=== PATIENT | male | born 1965 | race Two or more races ===

== ENCOUNTER 2024-09-28 11:38 | Inpatient (IN) | payer OTHER ==
[~2024-09-28] VITALS: Ht 167.6 cm; Wt 77.0 kg
--- NOTE | 2024-09-28 12:06 | ED.PDOC ---
GI ASSESSMENT HPI Comments 59 year old male presents to the ED with chief complaint of abdominal pain. Patient reports that he has been experiencing epigastric abdominal pain with associated nausea, vomiting, and diarrhea for the past 4 days. Patient denies any dizziness, fever, chills, melena, hematemesis, or dysuria. Chief Complaint: Abdominal Pain Time Seen by MD: 12:03 Reviewed Notes: Nurses Notes, Medications, Allergies Information Source: Patient Mode of Arrival: Ambulatory Timing: Days Duration: Since onset Prehospital treatment: None Quality: Aching Vomitus: Watery Stool: Watery Severity: Moderate Recent: None Recent Hx of: None Pain Location: Epigastric Modifying Factors: Nothing Associated sign and symptoms: Nausea, Vomiting, Diarrhea, Abdominal Pain Past Medical History PAST MEDICAL HISTORY: High Lipids, HTN Past Medical History (Other): Dewey's Esophagus Surgical History: Denies all surgeries Family History Family History: Reviewed,noncontributory to illness Social History Smoker: Non-Smoker, Quit Greater Than 1 Year Alcohol: Denies ETOH Use Drugs: Marijuana Lives In: Home Constitutional: denies: chills, diaphoresis, fatigue, fever, malaise, sweats, weakness, others EENTM: denies: blurred vision, double vision, ear bleeding, ear discharge, ear drainage, ear pain, ear ringing, eye pain, eye redness, hearing loss, mouth pain, mouth swelling, nasal discharge, nose bleeding, nose congestion, nose pain, photophobia, tearing, throat pain, throat swelling, voice changes, others Respiratory: denies: cough, hemoptysis, orthopnea, SOB at rest, shortness of breath, SOB with excertion, stridor, wheezing, others Cardiovascular: denies: chest pain, dizzy spells, diaphoresis, Dyspnea on exertion, edema, irregular heart beat, left arm pain, lightheadedness, palpitations, PND, syncope, others Gastrointestinal: reports: abdominal pain, diarrhea, nausea, vomiting; denies: abdomen distended, blood streaked bowels, constipated, dysphagia, difficulty swallowing, hematemesis, melena, poor appetite, poor fluid intake, rectal bleeding, rectal pain, others Genitourinary: denies: burning, dysuria, flank pain, frequency, hematuria, incontinence, penile discharge, penile sore, pain, testicle pain, testicle swelling, urgency, others Neurological: denies: dizziness, fainting, headache, left sided numbness, left sided weakness, numbness, paresthesia, pre-existing deficit, right sided numbness, right sided weakness, seizure, speech problems, tingling, tremors, we akness, others Musculoskeletal: denies: back pain, gout, joint pain, joint swelling, muscle pain, muscle stiffness, neck pain, others Integumetry: denies: bruises, change in color, change in hair/nails, dryness, laceration, lesions, lumps, rash, wounds, others Allergic/Immunocompromised: denies: Difficulty Healing, Frequent Infections, Hives, Itching, others Hematologic/Lymphatic: denies: anemia, blood clots, easy bleeding, easy bruising, swollen glands, others Endocrine: denies: excessive hunger, excessive sweating, excessive thirst, excessive urination, flushing, intolerance to cold, intolerance to heat, unexplained weight gain, unexplained weight loss, others Psychiatric: denies: anxiety, bipolar disorder, depression, hopeless, panic disorder, schizophrenia, sleepless, suicidal, others All Other Systems: Reviewed and Negative Physical Exam General Appearance: Moderate Distress, Normal HEENT: Normal ENT Inspection, PERRL/EOMI Neck: Full Range of Motion, Non-Tender, Normal, Normal Inspection Respiratory: Chest Non-Tender, Lungs Clear, No Accessory Muscle Use, No Respiratory Distress, Normal Breath Sounds Cardiovascular: No Edema, No JVD, No Murmur, No Gallop, Normal Peripheral Pulses, Regular Rate/Rhythm Breast Exam: Deferred Gastrointestinal: No Organomegaly, Non Tender, No Pulsatile Mass, Normal Bowel Sounds, Soft Genitalia: Deferred Pelvic: Deferred Rectal: Deferred Extremities: No calf tenderness, Normal capillary refill, Normal inspection, Normal range of motion, Non-tender, No pedal edema Musculoskeletal : Apperance: Normal Neurologic: Alert, director of accounts payable II-XII nml as Tested, No Motor Deficits, Normal Affect, Normal Mood, No Sensory Deficits Cerebellar Function: Normal Reflexes: Normal Skin: Dry, Normal Color, Warm Peripheral Pulses: 3+ Radial (R), 3+ Radial (L) Lymphatic: No Adenopathy Was a procedure done? Was a procedure done?: No GI differential Dx Differential Diagnosis: Constipation, Diverticular disease, Esophagitis, Gastritis/PUD, Gastroenteritis X-Ray, Labs, Meds, VS Vital Signs Date Time Temp Pulse Resp B/P (MAP) Pulse Ox O2 Delivery O2 Flow Rate FiO2 09/28/24 11:57 94 09/28/24 11:43 97.9 95 18 136/80 (98) 96 Lab Test 09/28/24 12:05 Range/Units White Blood Count 9.3 4.4-10.8 10^3/uL Red Blood Count 5.04 4.5-5.90 10^6/uL Hemoglobin 15.2 13.5-17.5 g/dL Hematocrit 44.7 41.0-53.0 % Mean Corpuscular Volume 88.7 80.0-100.0 fL Mean Corpuscular Hemoglobin 30.1 28.0-32.0 pg Mean Corpuscular Hemoglobin Concent 33.9 32.0-36.0 g/dL Red Cell Distribution Width 12.3 11.8-14.3 % Platelet Count 429 140-450 10^3/uL Mean Platelet Volume 7.0 6.9-10.8 fL Neutrophils (%) (Auto) 67.4 37.0-80.0 % Lymphocytes (%) (Auto) 23.0 10.0-50.0 % Monocytes (%) (Auto) 7.5 0.0-12.0 % Eosinophils (%) (Auto) 1.5 0.0-7.0 % Basophils (%) (Auto) 0.6 0.0-2.0 % Neutrophils # (Auto) 6.3 1.6-8.6 10 ^3/uL Lymphocytes # (Auto) 2.1 0.4-5.4 10 ^3/uL Monocytes # (Auto) 0.7 0-1.3 10 ^3/uL Eosinophils # (Auto) 0.1 0-0.8 10 ^3/uL Basophils # (Auto) 0.1 0-0.2 10 ^3/uL Nucleated Red Blood Cells 0.1 % Sodium Level Pending Potassium Level Pending Chloride Level Pending Carbon Dioxide Level Pending Anion Gap Pending Blood Urea Nitrogen Pending Creatinine Pending Glomerular Filtration Rate Calc Pending BUN/Creatinine Ratio Pending Serum Glucose Pending Calcium Level Pending Patient alert. Complaining of abdominal pain. Nausea vomiting diarrhea. Vitals stable. Has been having these symptoms for many days. Ambulating. Hemoglobin within normal limits. History of Dewey's esophagus. Establish intravenous access. Was given fluids. GI consultation. Was given Protonix. Reviewed his previous visit. Explained to the patient. Continue monitoring. Time of 1ST Reevaluation: 13:03 Reevaluation 1ST: Unchanged Patient Education/Counseling: Diagnosis, Treatment Family Education/Counseling: No Family Present Departure 1 Departure Time of Disposition: 12:49 Impression: Primary Impression: Gastroenteritis Additional Impression: Gastritis Qualified Codes: K29.00 - Acute gastritis without bleeding Disposition: ADMITTED INPATIENT Admit to: Med Surg Condition: Guarded Critical Care Note Critical Care Time?: No Stability Stability form required: No Heart Score Heart Score: Heart Score Response (Comments) Value History N/A 0 EKG N/A 0 Age N/A 0 Risk Factors N/A 0 Troponin N/A 0 Total 0 I personally scribed for XAVI JEORNIMO MD ([email or web address]) on 09/28/24 at 12:06. Electronically submitted by Robert Royal ([email or web address]). XAVI JERONIMO MD Sep 28, 2024 12:06
[2024-09-28 12:33] LABS: Basophils # (auto) 0.1 10 ^3/uL (0-0.2); Basophils % (auto) 0.6 % (0.0-2.0); Eosinophils # (auto) 0.1 10 ^3/uL (0-0.8); Eosinophils % (auto) 1.5 % (0.0-7.0); Hematocrit 44.7 % (41.0-53.0); Hemoglobin 15.2 g/dL (13.5-17.5); Lymphocytes # (auto) 2.1 10 ^3/uL (0.4-5.4); Mean Corpuscular Hemoglobin 30.1 pg (28.0-32.0); Mean Corpuscular Hgb Conc. 33.9 g/dL (32.0-36.0); Mean Corpuscular Volume 88.7 fL (80.0-100.0); Monocytes # (auto) 0.7 10 ^3/uL (0-1.3); Monocytes % (auto) 7.5 % (0.0-12.0); Neutrophils # (auto) 6.3 10 ^3/uL (1.6-8.6); Neutrophils % (auto) 67.4 % (37.0-80.0); Nucleated Red Blood Cells % 0.1 %; Platelet Count (auto) 429 10^3/uL (140-450); Red Blood Cells 5.04 10^6/uL (4.5-5.90); Red Cell Distribution Width 12.3 % (11.8-14.3); White Blood Cell 9.3 10^3/uL (4.4-10.8)
[2024-09-28 12:46] LABS: Chloride 106 mmol/L (98-107); Potassium 3.5 mmol/L (3.5-5.1); Sodium 142 mmol/L (136-145)
[2024-09-28 12:47] LABS: Anion Gap 9 (5-15); Carbon Dioxide 27 mmol/L (20-31)
[2024-09-28 12:48] LABS: Calcium 10.3 mg/dL (8.7-10.4)
[2024-09-28 12:52] LABS: Glucose 74 mg/dL (74-106)
[2024-09-28 12:54] LABS: BUN/Creatinine Ratio 6.3 (10.0-20.0); Blood Urea Nitrogen < 5 mg/dL (9-23)
[2024-09-28] MEDS: SODIUM CHLORIDE 0.9% 1,000 ML IV ONE (13:42)
[2024-09-28] MEDS: PANTOPRAZOLE 40 MG/10 ML VIAL INJ IV ONE (13:42)
[2024-09-28] MEDS: ONDANSETRON HCL 4 MG/2 ML VIAL IV ONE (13:42)
--- NOTE | 2024-09-28 21:19 | DVHHPRES ---
History of Present Illness Resident Creating Document: JANET GARDNER RESIDENT Reason for Visit: Abdominal pain History of Present Illness This is a 59-year-old male who presents to the ED with chief complain of abdominal pain. He has a past medical history relevant for hypertension, hyperlipidemia and Dewey's esophagus diagnosed several years ago. He denies any significant past surgical history. He states drinking alcohol and smoking tobacco around 15 years ago, used to be a heavy smoker and drinker. He occasionally smokes cannabis. Patient states that three days ago he started having epigastric abdominal pain, stabbing like, severe, constant, localized, nonradiating, mild improvement after eating. Associated with nausea and vomiting, he states his vomit appears brown, tarry like, denies any bright red blood, hematochezia or black stools. States having around 10 episodes per day. He also states having diarrhea, watery, yellowish, around five episodes per day. He also states having other associated symptoms such as dizziness, lighthe adedness, chills, fevers. He stated that he has lost around 40 lb in the last six months. Patient denies any shortness of breath, chest pain, suspicious skin rash, cough, sore throat, any frequent night sweats, fevers, chills. Last upper endoscopy was performed three years ago, last colonoscopy was performed three years ago as well, benign polyp identified. In the ED patient received IV fluids NS 1 L, Protonix 40 mg IV and Zofran 4 mg IV. CBC and BMP were unremarkable. Home medications: Enalapril, Protonix, Carafate, amitriptyline, oxycodone GI doctor is from [facility]. PCP is Dr. Joya. Cardiovascular: HTN, hyperipidemia Past Surgical History: None Smoke: Quit ALCOHOL: none (Quit) Lives: with Family Review of Systems Constitutional: Yes: Fever, Chills; No: Sweats, Weakness, Malaise, Other Eyes: No: Pain, Vision change, Conjunctivae inflammation, Eyelid inflammation, Other, Redness ENT: No: Ear pain, Ear discharge, Nose pain, Nose discharge, Nose congestion, Mouth pain, Mouth swelling, Throat pain, Throat swelling, Other Respiratory: No: Cough, Dry, Shortness of breath, SOB with excertion, Wheezing, Hemoptysis, Pleuritic Pain, Sputum, Wheezing, Other Cardiovascular: No: Chest Pain, Palpitations, Orthopnea, Paroxysmal Noc. Dyspnea, Edema, Lt Headedness, Other Gastrointestinal: Nausea, Vomiting, Abdominal Pain, Diarrhea; No: Constipation, Melena, Hematochezia, Other Genitourinary: No Dysuria, No Frequency, No Incontinence, No Hematuria, No Retention, No Other Musculoskeletal: No: other, neck pain, shoulder pain, arm pain, back pain, hand pain, leg pain, foot pain Skin: No: Rash, Lesions, Jaundice, Bruising, Other Neurological: No: Weakness, Numbness, Incoordination, Change in speech, Confusion, Seizures, Other Allergies: Coded Allergies: NO KNOWN ALLERGIES (Unverified , 09/28/24) Exam Vital Signs Vital Signs Date Time Temp Pulse Resp B/P (MAP) Pulse Ox O2 Delivery O2 Flow Rate FiO2 09/28/24 18:44 88 12 140/78 (98) 98 09/28/24 15:38 98.4 98.4 09/28/24 13:44 Room Air* 0 21 General Appearance: Alert, Oriented X3, Cooperative, No acute distress HEENT: Atraumatic, PERRLA, EOMI Respiratory: Clear to auscultation, Normal air movement Cardiovascular: Regular rate, Normal S1, Normal S2, No murmurs Abdominal: Normal bowel sounds, Soft, No hepatospenomegaly, No masses, Other (Moderate tenderness in epigastric region, mcdaniel positive) Extremities: No clubbing, No cyanosis, No edema, Normal pulses, No tenderness/swelling Skin: No rashes, No breakdown, No significant lesion Neuro: Normal gait, Normal speech, Strength at 5/5 X4 ext, Normal tone, Sensation intact, Cranial nerves 3-12 NL Psych/Mental Status: Mental status NL, Mood NL Labs/Xrays Labs Test 09/28/24 12:05 Range/Units White Blood Count 9.3 4.4-10.8 10^3/uL Red Blood Count 5.04 4.5-5.90 10^6/uL Hemoglobin 15.2 13.5-17.5 g/dL Hematocrit 44.7 41.0-53.0 % Mean Corpuscular Volume 88.7 80.0-100.0 fL Mean Corpuscular Hemoglobin 30.1 28.0-32.0 pg Mean Corpuscular Hemoglobin Concent 33.9 32.0-36.0 g/dL Red Cell Distribution Width 12.3 11.8-14.3 % Platelet Count 429 140-450 10^3/uL Mean Platelet Volume 7.0 6.9-10.8 fL Neutrophils (%) (Auto) 67.4 37.0-80.0 % Lymphocytes (%) (Auto) 23.0 10.0-50.0 % Monocytes (%) (Auto) 7.5 0.0-12.0 % Eosinophils (%) (Auto) 1.5 0.0-7.0 % Basophils (%) (Auto) 0.6 0.0-2.0 % Neutrophils # (Auto) 6.3 1.6-8.6 10 ^3/uL Lymphocytes # (Auto) 2.1 0.4-5.4 10 ^3/uL Monocytes # (Auto) 0.7 0-1.3 10 ^3/uL Eosinophils # (Auto) 0.1 0-0.8 10 ^3/uL Basophils # (Auto) 0.1 0-0.2 10 ^3/uL Nucleated Red Blood Cells 0.1 % Sodium Level 142 136-145 mmol/L Potassium Level 3.5 3.5-5.1 mmol/L Chloride Level 106 98-107 mmol/L Carbon Dioxide Level 27 20-31 mmol/L Anion Gap 9 5-15 Blood Urea Nitrogen < 5 L 9-23 mg/dL Creatinine 0.79 0.700-1.30 mg/dL Glomerular Filtration Rate Calc 102 >90 mL/min BUN/Creatinine Ratio 6.3 L 10.0-20.0 Serum Glucose 74 74-106 mg/dL Calcium Level 10.3 8.7-10.4 mg/dL Assessment/Plan Assessment/Plan #Abdominal pain likely due to gastroenteritis, gastritis, GERD, PUD, rule out UTI, diverticulitis, cholecystitis, appendicitis, pancreatitis #Upper GI bleed #History of Dewey's esophagus Keep NPO Admit to med surge IV fluids with LR, 110 mL/hour Protonix 40 mg IV b.i.d. Zofran 4 mg IV p.r.n. Order stool occult blood, stool culture, C diff toxin, stool WBC Monitor H&H Order morning labs Ordered hepatic panel, lipase, UDS, UA Ordered CT abdomen Order chest x-ray Previous upper endoscopy and colonoscopy were performed three years ago. Ordered GI consult #History of hypertension, controlled #Hyperlipidemia Monitor Currently NPO #Ex-heavy smoker #Previous alcohol abuse Quit 15 years ago #Degenerative disc disease of lumbar spine Pain medication p.r.n. Goals of care were discussed for 30 minutes. Full code Case was discussed with Dr. Ponce. Plan discussed with: Patient My Orders Orders - JANET GARDNER RESIDENT Procedure Category Date Status Time Admit ADMIT 09/28/24 Transmitted 20:55 Notify Md Of Changes ASHLYN 09/28/24 In Process From Base 20:55 Stool Occult Blood LAB 09/28/24 Transmitted 20:58 Stool Bacterial KUMAR 09/28/24 Transmitted Culture 20:58 Stool Wbc LAB 09/28/24 Transmitted 20:58 Npo (Nothing By DIET 09/29/24 Verified Mouth) Diet Breakfast Pantoprazole PHA 09/28/24 Verified (Protonix) 22:00 Ondansetron Hcl PHA 09/28/24 Verified (Zofran) 21:00 Morphine Sulfate PHA 09/28/24 Verified Injection 21:00 Clostridium Difficile KUMAR 09/28/24 Transmitted Toxin 20:58 Urinalysis LAB 09/28/24 Verified 20:58 Drug Screen LAB 09/28/24 Verified 20:58 Hepatic Panel LAB 09/28/24 Verified 20:58 Ct Ab Pel Wo Con-No CT 09/28/24 Verified Oral Or Iv 20:58 Chest Xray 1 View XY 09/28/24 Verified 20:58 Lactated Ringers Lr PHA 09/28/24 Verified 21:00 Date of Service: Sep 29, 2024 Billing Provider: VINAY PONCE MD Common Visit Codes: [id number] INP/OBS CARE (HIGH) JANET GARDNER RESIDENT Sep 28, 2024 21:19 VINAY PONCE MD Sep 30, 2024 09:29
[2024-09-28 21:47] LABS: Albumin 5.1 g/dL (3.2-4.8); Bilirubin, Direct 0.1 mg/dL (<0.3); Bilirubin, Total 0.4 mg/dL (0.2-1.0); Total Protein 7.2 g/dL (5.7-8.2)
[2024-09-28 22:01] VITALS: BP 133/80; PULSE 80; RESP 15; TEMP 98.3; O2SAT 99
--- NOTE | 2024-09-28 22:08 | DVH ---
Exam: CT CT AB PEL WO CON-NO ORAL OR IV History: abdominal pain r/o diverticulitis, cholelithiasis Comparison Study: None Technique: Multidetector spiral CT of the abdomen was performed from lung bases to pubic symphysis. I maging was performed without IV contrast. Axial, coronal and sagittal multiplanar reformats were obta ined from the axial data set by the technologist. Radiation dose : 1. Abdomen/Pelvis: CTDIvol [CTDIvol] mGy, DLP 470.27 mGy*cm. Findings: Evaluation of solid organs is limited due to lack of intravenous contrast use. Lung Bases: No abnormality demonstrated. Liver: Liver is normal in size. No focal lesions. Gallbladder and Biliary tree: No abnormality demonstrated. Spleen: No abnormality demonstrated. Pancreas: No abnormality demonstrated. Adrenal Glands: No abnormality demonstrated. Kidneys: No abnormality demonstrated with no calculus or hydronephrosis. Bladder: Non distended. Bowel: Stomach appears grossly unremarkable. No dilated or thick walled loops of large or small bowel identified. Appendix appears unremarkable. Ascites: Absent Lymphadenopathy: No evidence of lymphadenopathy. Abdominal wall and Mesentery: Unremarkable. Vasculature: Abdominal aorta and iliac arteries demonstrate mild atherosclerotic changes but are non aneurysmal. Pelvic Organs: Unremarkable Musculoskeletal: No aggressive bony lesions. Compression fractures of the T10 and L2 vertebral bodies with mild loss of vertebral body height without retropulsion, likely not acute. Severe degenerative disc disease at L3-L4. IMPRESSION: 1. No acute abdominal or pelvic findings. Radiation optimization: All CT scans at this facility use at least one of these dose optimization [place] hniques: Automated exposure control mA and/or kV adjustment per patient size (includes targeted exams where dose is matched to clinical indication) or iterative reconstruction.
[2024-09-28] MEDS ORDERED: ALBU108A5 (22:28)
[2024-09-28] MEDS ORDERED: PANT40TA57 (22:28)
[2024-09-28] MEDS ORDERED: ATOR40TA52 (22:28)
[2024-09-28] MEDS ORDERED: ACET-6 (22:28)
[2024-09-28] MEDS ORDERED: FLUT50SP (22:28)
[2024-09-28] MEDS ORDERED: ENAL1TAB48 (22:28)
[2024-09-28] MEDS ORDERED: AMLO1TAB22 (22:28)
[2024-09-28] MEDS ORDERED: LIDO1.8P (22:28)
[2024-09-28] MEDS ORDERED: AMIT-238 (22:28)
[2024-09-28] MEDS ORDERED: SUCR1TAB (22:28)
[2024-09-28] MEDS: LACTATED RINGER'S 1,000 ML IV ONE (23:27)
[2024-09-28 23:47] VITALS: BP 132/85; PULSE 77; RESP 18; TEMP 98.1; O2SAT 99
[2024-09-28] MEDS: PANTOPRAZOLE 40 MG/10 ML VIAL INJ IV SCH (23:55)
[2024-09-28] MEDS: MORPHINE SULFATE INJ 2 MG/ml SYRG IV PRN (23:57)
[2024-09-29] MEDS: LACTATED RINGER'S 1,000 ML IV ONE (00:55)
[2024-09-29 01:16] LABS: Urine Bacteria None Seen /hpf (None Seen)
[2024-09-29 01:31] LABS: Urine Blood Negative /uL (Negative); Urine Clarity Clear (Clear); Urine Color Yellow (Yellow); Urine Protein, UAD 1+ (Negative); Urine Specific Gravity 1.024 (1.001-1.035); Urine Squamous Epithelial Cell FEW /hpf (<5); Urine Urobilinogen 3 mg/dL (Negative); Urine WBC < 1 /HPF (0-3); Urine pH 8.5 (5.0-9.0)
[2024-09-29 01:42] LABS: Opiate Scree,Urine Neg (NEGATIVE)
[2024-09-29 01:46] LABS: Amphetamine Screen, Urine Neg (NEGATIVE); Barbiturate Scree,Urine Neg (NEGATIVE); Benzodiazephine Screen, Urine Neg (NEGATIVE); Cannabinoid Screen, Urine Pos (NEGATIVE); Cocaine Screen, Urine Neg (NEGATIVE); Phencyclidine Screen, Urine Neg (NEGATIVE)
[2024-09-29 02:11] LABS: COVID19 ANTIGEN SOFIA FIA NEGATIVE (NEGATIVE)
[2024-09-29 05:00] VITALS: BP 146/88; PULSE 92; RESP 21; TEMP 97.9; O2SAT 98
--- NOTE | 2024-09-29 06:36 | DVH ---
EXAM: XR Chest, 1 View CLINICAL INDICATION: chest pain TECHNIQUE: Frontal view of the chest. COMPARISON: None FINDINGS: LUNGS AND PLEURAL SPACES: Pulmonary venous congestion. No consolidation. No pneumothorax. HEART: Unremarkable. No cardiomegaly. MEDIASTINUM: Unremarkable. Normal mediastinal contour. BONES/JOINTS: Unremarkable. No acute fracture. OTHER FINDINGS: . . IMPRESSION: Pulmonary venous congestion.
[2024-09-29] MEDS: ONDANSETRON HCL 4 MG/2 ML VIAL IV PRN (06:46)
[2024-09-29 07:13] LABS: Basophils # (auto) 0 10 ^3/uL (0-0.2); Basophils % (auto) 0.4 % (0.0-2.0); Eosinophils # (auto) 0.3 10 ^3/uL (0-0.8); Eosinophils % (auto) 3.7 % (0.0-7.0); Hematocrit 39.3 % (41.0-53.0); Hemoglobin 13.7 g/dL (13.5-17.5); Lymphocytes % (auto) 25.1 % (10.0-50.0); Mean Corpuscular Hemoglobin 30.9 pg (28.0-32.0); Mean Corpuscular Hgb Conc. 34.8 g/dL (32.0-36.0); Mean Corpuscular Volume 88.7 fL (80.0-100.0); Monocytes # (auto) 0.5 10 ^3/uL (0-1.3); Monocytes % (auto) 6.3 % (0.0-12.0); Neutrophils # (auto) 5.2 10 ^3/uL (1.6-8.6); Neutrophils % (auto) 64.5 % (37.0-80.0); Nucleated Red Blood Cells % 0.1 %; Platelet Count (auto) 322 10^3/uL (140-450); Red Blood Cells 4.43 10^6/uL (4.5-5.90); Red Cell Distribution Width 12.4 % (11.8-14.3); White Blood Cell 8.1 10^3/uL (4.4-10.8)
[2024-09-29 07:21] LABS: Partial Thromboplastin Time 24.8 SEC (24.5-34.5); Prothrombin Time 10.6 sec (9.3-11.8)
[2024-09-29 07:30] LABS: Anion Gap 8 (5-15); Carbon Dioxide 27 mmol/L (20-31); Potassium 3.8 mmol/L (3.5-5.1); Sodium 142 mmol/L (136-145)
[2024-09-29 07:32] LABS: Calcium 9.4 mg/dL (8.7-10.4)
[2024-09-29 07:36] LABS: BUN/Creatinine Ratio 5.7 (10.0-20.0); Glucose 96 mg/dL (74-106)
[2024-09-29 07:41] LABS: Blood Urea Nitrogen 5 mg/dL (9-23)
[2024-09-29 07:42] LABS: Chloride 107 mmol/L (98-107)
[2024-09-29 08:00] VITALS: RESP 18
[2024-09-29] MEDS ORDERED: IOHEXOL 300 MG/ML 100ML BOTTLE IJ ONE (08:23)
[2024-09-29 09:00] VITALS: BP 133/83; PULSE 77; RESP 17; TEMP 98.1; O2SAT 97
--- NOTE | 2024-09-29 09:00 | DVH ---
CT CT AB PEL WITH IV CON ONLY INDICATION: r/o pancreatic mass, gastric mass EXAM DATE: 09/29/2024 08:21 AM COMPARISON: None RADIATION DOSE: CTDIvol: 10.71 mGy, DLP: 582.89 mGy*cm PROCEDURE: Helical CT images were obtained of the abdomen and pelvis with IV contrast Sagittal and c oronal reconstructions are provided. ORAL CONTRAST: None. ADDITIONAL IMAGES / REFORMATS: None All CT scans at this medical facility are performed using dose modulation techniques as appropriate t o a performed exam including the following: Automated exposure control was utilized; adjustment of th e MA and/or KV according to patient size; and use of iterative reconstruction technique. FINDINGS: LUNG BASE: Normal. LIVER: Normal. GALLBLADDER AND BILIARY TREE: No calcified gallstones. Normal caliber wall. No intra- or extrahepatic biliary ductal dilation. PANCREAS: Normal. SPLEEN: Normal. BOWEL: Normal. ADRENALS: Normal. KIDNEYS AND URETER: Normal. BLADDER: Normal. REPRODUCTIVE ORGANS: Normal. LYMPH NODES:No lymphadenopathy. PERITONEUM: No ascites or free air. No other fluid collection. VESSELS: Scattered atherosclerotic calcifications are noted. RETROPERITONEUM: Normal. ABDOMINAL WALL: Normal. BONES: Scattered osseous degenerative changes are noted. IMPRESSION: No acute intraabdominal abnormality. No abdominal masses are seen.
[2024-09-29] MEDS: MORPHINE SULFATE INJ 2 MG/ml SYRG IV ONE (10:00)
--- NOTE | 2024-09-29 10:36 | DVHCONRES ---
Date Seen: Sep 29, 2024 Resident Creating Document: EARLENE RIDDLE RESIDENT History of Present Illness Patient states that three days ago he started having epigastric abdominal pain, stabbing like, severe, constant, localized, nonradiating, mild improvement after eating. Associated with nausea and vomiting, he states his vomit appears brown, tarry like, denies any bright red blood, hematochezia or black stools. States having around 10 episodes per day. He also states having diarrhea, watery, yellowish, around five episodes per day. He also states having other associated symptoms such as dizziness, lightheadedness, chills, fevers. He stated that he has lost around 40 lb in the last six months. Patient denies any shortness of breath, chest pain, suspicious skin rash, cough, sore throat, any frequent night sweats, fevers, chills. Last upper endoscopy was performed three years ago, last colonoscopy was performed three years ago as well, benign polyp identified. In the ED patient received IV fluids NS 1 L, Protonix 40 mg IV and Zofran 4 mg IV. CBC and BMP were unremarkable. Patient seen and examined at the bedside. Reports epigastric pain, history of Dewey's esophagus. EGD scheduled for tomorrow NPO midnight. Home medications: Enalapril, Protonix, Carafate, amitriptyline, oxycodone GI doctor is from [facility]. PCP is Dr. Joya. Cardiovascular: HTN, hyperipidemia Past Surgical History: None Smoke: Quit ALCOHOL: none (Quit) Lives: with Family Allergies: Coded Allergies: NO KNOWN ALLERGIES (Unverified , 09/28/24) Home Meds Reported Medications Acetaminophen (Acetaminophen Extra Stren) 500 Mg Tab, 1 09/28/24 Fluticasone Propionate (Nasal) (Fluticasone Propionate) 50 Mcg/Act Spr 09/28/24 Amitriptyline HCl (Amitriptyline Hydrochlori) 25 Mg Tab, 1 09/28/24 Pantoprazole Sodium Sesquihydr (Pantoprazole Sodium Dr) 40 Mg Tab, 1 DAILY 09/28/24 Enalapril Maleate (Enalapril Maleate) 20 Mg Tab, 1 09/28/24 Atorvastatin Calcium (ATORVASTATIN CALCIUM) 40 Mg Tab, 1 DAILY 09/28/24 Lidocaine (Ztlido) 1.8 % Pad 09/28/24 Amlodipine Besylate (Amlodipine Besylate) 5 Mg Tab, 1 DAILY 09/28/24 Sucralfate (Sucralfate) 1 Gm Tab, 1 DAILY 09/28/24 Albuterol Sulfate (Albuterol Sulfate Hfa) 108 Mcg/Act Aer 09/28/24 Current Medications Current Medications Medications (Trade) Dose Ordered Sig/Cyndi Route PRN Reason Start Time Stop Time Status Last Admin Pantoprazole Sodium (Protonix) 40 mg BID IV 09/28/24 22:00 09/28/24 23:55 Ondansetron HCl (Zofran) 4 mg Q4HPRN PRN IV NAUSEA / VOMITING 09/28/24 21:00 09/29/24 06:46 Morphine Sulfate 1 mg Q4HP PRN IV SEVERE PAIN (7-10 PAIN SCALE) 09/28/24 21:00 09/29/24 10:03 DC 09/29/24 06:47 Sucralfate (Carafate Tab) 1 gm QIDACHS PO 09/29/24 11:30 Morphine Sulfate 2 mg Q4HPRN PRN IV SEVERE PAIN (7-10 PAIN SCALE) 09/29/24 10:00 Review of Systems Eyes: No Pain, No Vision change, No Conjunctivae inflammation, No Eyelid inflammation, No Other, No Redness ENT: No Ear pain, No Ear discharge, No Nose pain, No Nose discharge, No Nose congestion, No Mouth pain, No Mouth swelling, No Throat pain, No Throat swelling, No Other Cardiovascular: No Chest Pain, No Palpitations, No Orthopnea, No PND, No Edema, No Lt Headedness, No Other Respiratory: No Cough, No Dry, No Shortness of breath, No SOB with exertion, No Wheezing, No Hemoptysis, No Pleuritic Pain, No Sputum, No Other Gastrointestinal: Reports epigastric abdominal pain, dark stools. Denies nausea vomiting diarrhea Genitourinary: No Dysuria, No Frequency, No Incontinence, No Hematuria, No Rete ntion, No Other Musculoskeletal: No other, No neck pain, No shoulder pain, No arm pain, No back pain, No hand pain, No leg pain, No foot pain Skin: No Rash, No Lesions, No Jaundice, No Bruising, No Other Vital Signs Vital Signs Date Time Temp Pulse Resp B/P (MAP) Pulse Ox O2 Delivery O2 Flow Rate FiO2 09/29/24 09:00 98.1 77 17 133/83 (100) 97 98.1 09/28/24 22:01 Room Air* 0 21 Physical Exam Patient lying in bed, in no acute distress General: Well-built, afebrile, palor, mucosae are moist Cardiovascular: Regular S1 and S2. No murmurs, gallops or rubs. No JVD elevation. No pedal edema Respiratory: Normal B/L air entry on room air. Clear lung sounds on auscultatio n Abdomen: Epigastric tenderness, soft, nondistended Genitourinary: Deferred MSK/skin: Mobilizes 4 limbs. Skin is dry and warm Neurological: No motor, no sensitive deficits, normal speech. Pupils are isocoric and reactive. Psych/Mental Status: A/Ox3 Labs/Diagnostic Data Labs Test 09/29/24 06:31 09/29/24 06:30 09/29/24 01:08 09/29/24 01:07 Range/Units White Blood Count 8.1 4.4-10.8 10^3/uL Red Blood Count 4.43 L 4.5-5.90 10^6/uL Hemoglobin 13.7 13.5-17.5 g/dL Hematocrit 39.3 #L 41.0-53.0 % Mean Corpuscular Volume 88.7 80.0-100.0 fL Mean Corpuscular Hemoglobin 30.9 28.0-32.0 pg Mean Corpuscular Hemoglobin Concent 34.8 32.0-36.0 g/dL Red Cell Distribution Width 12.4 11.8-14.3 % Platelet Count 322 140-450 10^3/uL Mean Platelet Volume 7.1 6.9-10.8 fL Neutrophils (%) (Auto) 64.5 37.0-80.0 % Lymphocytes (%) (Auto) 25.1 10.0-50.0 % Monocytes (%) (Auto) 6.3 0.0-12.0 % Eosinophils (%) (Auto) 3.7 0.0-7.0 % Basophils (%) (Auto) 0.4 0.0-2.0 % Neutrophils # (Auto) 5.2 1.6-8.6 10 ^3/uL Lymphocytes # (Auto) 2.0 0.4-5.4 10 ^3/uL Monocytes # (Auto) 0.5 0-1.3 10 ^3/uL Eosinophils # (Auto) 0.3 0-0.8 10 ^3/uL Basophils # (Auto) 0 0-0.2 10 ^3/uL Nucleated Red Blood Cells 0.1 % Prothrombin Time 10.6 9.3-11.8 sec Prothrombin Time INR 1.00 0.9-1.15 Activated Partial Thromboplast Time 24.8 24.5-34.5 SEC Sodium Level 142 136-145 mmol/L Potassium Level 3.8 3.5-5.1 mmol/L Chloride Level 107 98-107 mmol/L Carbon Dioxide Level 27 20-31 mmol/L Anion Gap 8 5-15 Blood Urea Nitrogen 5 L 9-23 mg/dL Creatinine 0.88 0.700-1.30 mg/dL Glomerular Filtration Rate Calc 98 >90 mL/min BUN/Creatinine Ratio 5.7 L 10.0-20.0 Serum Glucose 96 74-106 mg/dL Hemoglobin A1c 5.6 <5.7 % A1C Calcium Level 9.4 8.7-10.4 mg/dL Carcinoembryonic Antigen 2.13 <=5.0 ng/mL Stool Occult Blood Negative Negative Stool Occult Blood Sample #3 Negative Urine Color Yellow Yellow Urine Clarity Clear Clear Urine pH 8.5 5.0-9.0 Urine Specific [place] 1.024 1.001-1.035 Urine Protein 1+ H Negative Urine Ketones Negative Negative Urine Blood Negative Negative /uL Urine Nitrite Negative Negative Urine Bilirubin Negative Negative Urine Urobilinogen 3 H Negative mg/dL Urine Leukocyte Esterase Negative Negative /uL Urine RBC 3 0 - 3 /hpf Urine Microscopic WBC < 1 0-3 /HPF Urine Squamous Epithelial Cells Few <5 /hpf Urine Bacteria None seen None Seen /hpf Urine Glucose Normal Normal mg/dL Urine Opiates Screen Neg NEGATIVE Urine Fentanyl Screen Neg NEGATIVE Urine Barbiturates Screen Neg NEGATIVE Urine Phencyclidine Screen Neg NEGATIVE Urine Amphetamines Screen Neg NEGATIVE Urine Benzodiazepines Screen Neg NEGATIVE Urine Cocaine Screen Neg NEGATIVE Urine Cannabinoids Screen Pos NEGATIVE SARS-CoV-2 Antigen (Rapid) Negative NEGATIVE Lactic Acid Level 1.0 0.4-2.0 mmol/L Test 09/28/24 12:05 Range/Units Total Bilirubin 0.4 0.2-1.0 mg/dL Direct Bilirubin 0.1 <0.3 mg/dL Aspartate Amino Transferase (AST) 15 13-40 U/L Alanine Aminotransferase (ALT) 30 7-40 U/L Alkaline Phosphatase 119 H 46-116 U/L Total Protein 7.2 5.7-8.2 g/dL Albumin 5.1 H 3.2-4.8 g/dL Lipase 67 H 12-53 U/L Assessment Epigastric pain secondary to gastritis versus PUD Ruled out GI bleeding History of Dewey's esophagus Cannabis use dependence Hypertension Hyperlipidemia Last EGD 2020, at [facility] showed resolving Dewey's esophagus Last colonoscopy 2022 at [facility] showed polyps Plan: Given the epigastric pain, which is relieved by food, history of Dewey's esophagitis and GERD, patient will be scheduled for endoscopy 09/30/2024. NPO starting midnight. Continue pantoprazole 40 mg daily and sucralfate 1 g q.i.d. daily Soft diet for now Plan discussed with patient and spouse at the bedside in which all questions have been answered Case discussed with Dr. Bruce Plan discussed with: Patient, Spouse (At the bedside) EARLENE RIDDLE RESIDENT Sep 29, 2024 10:36
[2024-09-29 12:24] LABS: Albumin 4.4 g/dL (3.2-4.8); Bilirubin, Direct 0.3 mg/dL (<0.3); Bilirubin, Total 0.7 mg/dL (0.2-1.0); Total Protein 6.1 g/dL (5.7-8.2)
[2024-09-29 12:47] LABS: Folate (Folic Acid) 7.4 ng/mL (>5.38)
[2024-09-29 13:00] VITALS: BP 147/81; PULSE 84; RESP 18; TEMP 98.3; O2SAT 97
--- NOTE | 2024-09-29 13:52 | DVHPNRES ---
Progress Note Date Seen: Sep 29, 2024 Resident Creating Document: DEMETRIUS BLEDSOE RESIDENT Has the PT tested + for MRSA If YES, has PT been informed?: No Medical Necessity Reason Pt with a Central, PICC or Fol: No Subjective Review of Systems Patient states that three days ago he started having epigastric abdominal pain, stabbing like, severe, constant, localized, nonradiating, mild improvement after eating. Associated with nausea and vomiting, he states his vomit appears brown, tarry like, denies any bright red blood, hematochezia or black stools. States having around 10 episodes per day. He also states having diarrhea, watery, yellowish, around five episodes per day. He also states having other associated symptoms such as dizziness, lightheadedness, chills, fevers. He stated that he has lost around 40 lb in the last six months. Patient denies any shortness of breath, chest pain, suspicious skin rash, cough, sore throat, any frequent night sweats, fevers, chills. Last upper endoscopy was performed three years ago, last colonoscopy was performed three years ago as well, benign polyp identified. In the ED patient received IV fluids NS 1 L, Protonix 40 mg IV and Zofran 4 mg IV. CBC and BMP were unremarkable. Home medications: Enalapril, Protonix, Carafate, amitriptyline, oxycodone GI doctor is from [facility]. PCP is Dr. Joya. Cardiovascular: HTN, hyperipidemia Past Surgical History: None Smoke: Quit ALCOHOL: none (Quit) Lives: with Family Objective vital signs Vital Sign Date Time Temp Pulse Resp B/P (MAP) Pulse Ox O2 Delivery O2 Flow Rate FiO2 09/29/24 13:00 98.3 84 18 147/81 (103) 97 98.3 09/28/24 22:01 Room Air* 0 21 Total Intake and Output 09/28/24 09/28/24 09/29/24 15:00 23:00 07:00 Intake Total 1000 ml Output Total 200 ml Balance 800 ml medications Current Medications Medications Dose Ordered Sig/Cyndi Route Start Time Stop Time Status Last Admin Dose Admin Pantoprazole Sodium 40 mg BID IV 09/28/24 22:00 09/28/24 23:55 40 MG Ondansetron HCl 4 mg Q4HPRN PRN IV 09/28/24 21:00 09/29/24 06:46 4 MG Sucralfate 1 gm QIDACHS PO 09/29/24 11:30 Morphine Sulfate 2 mg Q4HPRN PRN IV 09/29/24 10:00 Examination General Appearance: Alert, Oriented X3, Cooperative, No acute distress HEENT: Atraumatic, PERRLA, EOMI Respiratory: Clear to auscultation, Normal air movement Cardiovascular: Regular rate, Normal S1, Normal S2, No murmurs Abdominal: Normal bowel sounds, Soft, No hepatospenomegaly, No masses, Other (Moderate tenderness in epigastric region, mcdaniel positive) Extremities: No clubbing, No cyanosis, No edema, Normal pulses, No tenderness/swelling Skin: No rashes, No breakdown, No significant lesion Neuro: Normal gait, Normal speech, Strength at 5/5 X4 ext, Normal tone, Sensation intact, Cranial nerves 3-12 NL Psych/Mental Status: Mental status NL, Mood NL laboratory and microbiology Laboratory Tests 09/29/24 06:31 Test 09/29/24 06:31 Range/Units Serum Glucose 96 74-106 mg/dL Microbiology Date/Time Source Procedure Growth Status 09/29/24 06:30 Stool Stool Culture - Preliminary Resulted 09/29/24 06:30 Stool Shiga Toxin I & II - Final Resulted 09/29/24 06:30 Stool Clostridium difficile Toxin Assay Pending Resulted Problem List/Assessment/Plan Problem List/Assessment/Plan #Abdominal pain likely due to gastritis, GERD, PUD #Ruled out upper GI bleed #History of Dewey's esophagus Clear liquid diet Admit to med surge IV fluids with LR, 110 mL/hour Protonix 40 mg IV b.i.d. Zofran 4 mg IV p.r.n. stool occult blood neg stool WBC neg stool culture, C diff toxin pending H&H normal Order morning labs lipase, UDS, UA: WNL except for CBD + Pending hepatic panel, Normal CT abdomen Normal chest x-ray Previous upper endoscopy and colonoscopy were performed three years ago. GI consult: egd tomorrow #History of hypertension, controlled #Hyperlipidemia Monitor #Ex-heavy smoker #Previous alcohol abuse Quit 15 years ago #Degenerative disc disease of lumbar spine Pain medication p.r.n. Goals of care were discussed for 30 minutes. Full code Case was discussed with Dr. Ponce Plan discussed with: Patient, Other (rn) My Orders My Orders Orders - DEMETRIUS BLEDSOE Procedure Category Date Status Time Sucralfate Tab PHA 09/29/24 In Process (Carafate Tab) 11:30 Clear Liq Diet DIET 09/29/24 Transmitted Lunch Morphine Sulfate PHA 09/29/24 In Process Injection 10:00 Date of Service: Sep 29, 2024 Billing Provider: VINAY PONCE MD Common Visit Codes: [id number] INP/OBS CARE(HIGH) DEMETRIUS BLEDSOE Sep 29, 2024 13:52 VINAY PONCE MD Sep 30, 2024 09:30
[2024-09-29] MEDS: MORPHINE SULFATE INJ 2 MG/ml SYRG IV PRN (15:03)
[2024-09-29] MEDS: SUCRALFATE 1 GM TAB PO SCH (15:04)
[2024-09-29 16:57] VITALS: BP 137/85; PULSE 71; RESP 18; TEMP 98.1; O2SAT 98
[2024-09-29] MEDS: amLODIPine BESYLATE 5 MG TAB PO ONE (18:16)
[2024-09-29] MEDS: ENALAPRIL MALEATE 2.5 MG TAB PO ONE (18:16)
[2024-09-29] MEDS: ATORVASTATIN 20 MG TAB PO SCH (20:46)
[2024-09-30 07:16] LABS: Basophils # (auto) 0 10 ^3/uL (0-0.2); Basophils % (auto) 0.4 % (0.0-2.0); Eosinophils # (auto) 0.3 10 ^3/uL (0-0.8); Eosinophils % (auto) 3.5 % (0.0-7.0); Hematocrit 42.4 % (41.0-53.0); Hemoglobin 14.7 g/dL (13.5-17.5); Lymphocytes % (auto) 24.4 % (10.0-50.0); Mean Corpuscular Hemoglobin 30.9 pg (28.0-32.0); Mean Corpuscular Hgb Conc. 34.7 g/dL (32.0-36.0); Mean Corpuscular Volume 89.1 fL (80.0-100.0); Monocytes # (auto) 0.5 10 ^3/uL (0-1.3); Monocytes % (auto) 6.4 % (0.0-12.0); Neutrophils # (auto) 5.4 10 ^3/uL (1.6-8.6); Neutrophils % (auto) 65.3 % (37.0-80.0); Nucleated Red Blood Cells % 0.2 %; Platelet Count (auto) 350 10^3/uL (140-450); Red Blood Cells 4.76 10^6/uL (4.5-5.90); Red Cell Distribution Width 12.5 % (11.8-14.3); White Blood Cell 8.3 10^3/uL (4.4-10.8)
[2024-09-30 09:35] VITALS: BP 119/70; PULSE 76; RESP 16; TEMP 98.4; O2SAT 96
[2024-09-30] MEDS ORDERED: amLODIPine BESYLATE 5 MG TAB PO SCH (10:00)
[2024-09-30] MEDS ORDERED: ENALAPRIL MALEATE 2.5 MG TAB PO SCH (10:00)
[2024-09-30 11:48] LABS: Alanine Aminotransferase 26 U/L (7-40); Albumin 4.7 g/dL (3.2-4.8); Alkaline Phosphatase 109 U/L (46-116); BUN/Creatinine Ratio 7.3 (10.0-20.0); Carbon Dioxide 27 mmol/L (20-31); Glucose 103 mg/dL (74-106); Magnesium 2.1 mg/dL (1.6-2.6); Potassium 4.1 mmol/L (3.5-5.1); Sodium 141 mmol/L (136-145)
[2024-09-30 11:52] LABS: Aspartate Aminotransferase 11 U/L (13-40); Blood Urea Nitrogen 6 mg/dL (9-23); Total Protein 6.6 g/dL (5.7-8.2)
[2024-09-30 12:09] LABS: Anion Gap 8 (5-15); Chloride 106 mmol/L (98-107)
[2024-09-30 12:18] LABS: Bilirubin, Total 0.6 mg/dL (0.2-1.0)
--- NOTE | 2024-09-30 13:37 | DVHPNRES ---
Progress Note Has the PT tested + for MRSA If YES, has PT been informed?: No Medical Necessity Reason Pt with a Central, PICC or Fol: No Objective vital signs Vital Sign Date Time Temp Pulse Resp B/P (MAP) Pulse Ox O2 Delivery O2 Flow Rate FiO2 09/30/24 12:38 75 18 136/72 09/30/24 09:35 98.4 96 98.4 09/29/24 20:00 Room Air* 0 21 Total Intake and Output 09/29/24 09/29/24 09/30/24 15:00 23:00 07:00 Intake Total 600 ml 850 ml Balance 600 ml 850 ml medications Current Medications Medications Dose Ordered Sig/Cyndi Route Start Time Stop Time Status Last Admin Dose Admin Pantoprazole Sodium 40 mg BID IV 09/28/24 22:00 09/30/24 08:10 40 MG Ondansetron HCl 4 mg Q4HPRN PRN IV 09/28/24 21:00 09/30/24 12:37 4 MG Sucralfate 1 gm QIDACHS PO 09/29/24 11:30 09/29/24 20:46 1 GM Morphine Sulfate 2 mg Q4HPRN PRN IV 09/29/24 10:00 09/30/24 12:38 2 MG Amlodipine Besylate 5 mg DAILY PO 09/30/24 10:00 Enalapril Maleate 5 mg DAILY PO 09/30/24 10:00 Atorvastatin Calcium 40 mg HS PO 09/29/24 22:00 09/29/24 20:46 40 MG laboratory and microbiology Laboratory Tests 09/30/24 06:22 Test 09/30/24 06:22 Range/Units Serum Glucose 103 74-106 mg/dL Microbiology Date/Time Source Procedure Growth Status 09/29/24 06:30 Stool Stool Culture - Preliminary Resulted 09/29/24 06:30 Stool Shiga Toxin I & II - Final Resulted 09/29/24 06:30 Stool Clostridium difficile Toxin Assay - Final Resulted Problem List/Assessment/Plan Problem List/Assessment/Plan #Abdominal pain likely due to gastritis, GERD, PUD #Ruled out upper GI bleed #History of Dewey's esophagus Clear liquid diet Admit to med surge IV fluids with LR, 110 mL/hour Protonix 40 mg IV b.i.d. Zofran 4 mg IV p.r.n. stool occult blood neg stool WBC neg stool culture, C diff toxin pending H&H normal Order morning labs lipase, UDS, UA: WNL except for CBD + Pending hepatic panel, Normal CT abdomen Normal chest x-ray Previous upper endoscopy and colonoscopy were performed three years ago. GI consult: egd tomorrow #History of hypertension, controlled #Hyperlipidemia Monitor #Ex-heavy smoker #Previous alcohol abuse Quit 15 years ago #Degenerative disc disease of lumbar spine Pain medication p.r.n. Goals of care were discussed for 30 minutes. Full code Case was discussed with Dr. Ponce My Orders My Orders Orders - DEMETRIUS BLEDSOE RESIDENT Procedure Category Date Status Time Amlodipine Tablet PHA 09/30/24 In Process (Norvasc Tablet) 10:00 Enalapril Tablet PHA 09/30/24 In Process (Vasotec Tablet) 10:00 Atorvastatin (Lipitor) PHA 09/29/24 In Process 22:00 DEMETRIUS BLEDSOE RESIDENT Sep 30, 2024 13:37
[2024-09-30] MEDS ORDERED: fentaNYL CITRATE 100 MCG/2 ML VL ONE (13:41)
[2024-09-30] MEDS ORDERED: MEPERIDINE HCL (25 MG/ML) 1ML VIAL ONE (13:41)
[2024-09-30] MEDS ORDERED: MIDAZOLAM HCL 2MG/2ML 2ml VIAL (1mg/ml) ONE (13:42)
[2024-09-30] MEDS ORDERED: DexAMETHasone SOD PHOS 10MG/1ML VIAL INJ ONE (13:55)
[2024-09-30 13:58] VITALS: PULSE 75; RESP 11; O2SAT 95
--- NOTE | 2024-09-30 13:59 | DVHOP2 ---
Operative Report DATE OF OPERATION: 09/30/24 PROCEDURE: Upper Endoscopy with biopsy PREOPERATIVE INDICATION: The patient is a 59 -year-old male undergoing endoscopy for nausea vomiting epigastric pain and weight loss POSTOPERATIVE DIAGNOSES: 1. 0.5 cm sliding-type hiatal hernia with slightly irregular squamocolumnar waylon ction no significant erosive esophagitis and no evidence of Dewey's 2. Minimal gastritis otherwise normal examination up to the 2nd and 3rd part of the duodenum PROCEDURE PERFORMED BY: Mary Bruce GI NURSE: Telma SCOPE: Olympus videoendoscope. ASA CLASS: 3. PREOPERATIVE MEDICATIONS: MAC sedationDr. Woods PROCEDURE IN DETAIL: After obtaining an informed consent, the patient was placed on left lateral decubitus position. The patient was then sedated with the above medications. A bite block was placed between his teeth. The endoscope was then passed through the oropharynx, into the esophagus, and through the stomach and pylorus up to the second and third part of the duodenum. The endoscope was then withdrawn. The 2nd and 3rd part of the duodenum and the duodenal bulb were normal. Duodenal biopsies were obtained. The pre-pyloric area antrum and body showed minimal gastritis. There were no ulcers or erosions. Gastric biopsies were obtained. On retroflexion the fundus cardia and angularis were normal. Endoscope was then withdrawn into the distal esophagus where he had a 0.5 cm extension of columnar epithelium into the distal esophagus. There was no evidence of esophagitis and no evidence of Dewey's. GE junction biopsies were obtained. The remaining distal and proximal esophagus and oropharynx were unremarkable The patient tolerated the procedure well without difficulty. COMPLICATIONS : None SPECIMENS: Duodenal biopsies Gastric biopsies GE junction biopsies DISPOSITION: Stable D/C to home PLAN: 1. Await for biopsy result 2. Will place pt on Protonix 40 mg p.o. twice a day 3. Carafate 1 g p.o. twice a day 4. Resume GI soft diet advance as tolerated 5. Outpatient follow up with me in 4-6 weeks to review results and discuss further management MARY BRUCE MD Sep 30, 2024 13:59
[2024-09-30 14:25] VITALS: BP 136/58; PULSE 75; RESP 18; TEMP 98.2; O2SAT 98
[2024-09-30] MEDS ORDERED: PANT40TA2 PO (14:53)
[2024-09-30 16:48] VITALS: BP 124/74; PULSE 78; RESP 17; TEMP 36.8; O2SAT 96
[2024-09-30 17:00] VITALS: BP 124/74; PULSE 78; RESP 17; TEMP 98.1; O2SAT 96
[2024-09-30 18:00] VITALS: BP 121/65; PULSE 75; RESP 18
[2024-09-30] MEDS ORDERED: SUCR1TAB PO (18:40)
--- NOTE | 2024-09-30 18:47 | DVHDSRES ---
Discharge Summary Date of Admission Resident Creating Document: EARLENE RIDDLE RESIDENT Sep 28, 2024 at 20:55 Date of Discharge: Sep 30, 2024 Admitting Diagnosis #Abdominal pain likely due to gastritis Labs/Diagnostic Data: Laboratory Results Test 09/30/24 06:22 09/29/24 06:31 09/29/24 06:30 09/29/24 01:08 White Blood Count 8.3 10^3/uL (4.4-10.8) Red Blood Count 4.76 10^6/uL (4.5-5.90) Hemoglobin 14.7 g/dL (13.5-17.5) Hematocrit 42.4 % (41.0-53.0) Mean Corpuscular Volume 89.1 fL (80.0-100.0) Mean Corpuscular Hemoglobin 30.9 pg (28.0-32.0) Mean Corpuscular Hemoglobin Concent 34.7 g/dL (32.0-36.0) Red Cell Distribution Width 12.5 % (11.8-14.3) Platelet Count 350 10^3/uL (140-450) Mean Platelet Volume 7.2 fL (6.9-10.8) Neutrophils (%) (Auto) 65.3 % (37.0-80.0) Lymphocytes (%) (Auto) 24.4 % (10.0-50.0) Monocytes (%) (Auto) 6.4 % (0.0-12.0) Eosinophils (%) (Auto) 3.5 % (0.0-7.0) Basophils (%) (Auto) 0.4 % (0.0-2.0) Neutrophils # (Auto) 5.4 10 ^3/uL (1.6-8.6) Lymphocytes # (Auto) 2.0 10 ^3/uL (0.4-5.4) Monocytes # (Auto) 0.5 10 ^3/uL (0-1.3) Eosinophils # (Auto) 0.3 10 ^3/uL (0-0.8) Basophils # (Auto) 0 10 ^3/uL (0-0.2) Nucleated Red Blood Cells 0.2 % Sodium Level 141 mmol/L (136-145) Potassium Level 4.1 mmol/L (3.5-5.1) Chloride Level 106 mmol/L (98-107) Carbon Dioxide Level 27 mmol/L (20-31) Anion Gap 8 (5-15) Blood Urea Nitrogen 6 mg/dL (9-23) Creatinine 0.82 mg/dL (0.700-1.30) Glomerular Filtration Rate Calc 101 mL/min (>90) BUN/Creatinine Ratio 7.3 (10.0-20.0) Serum Glucose 103 mg/dL (74-106) Calcium Level 10.0 mg/dL (8.7-10.4) Magnesium Level 2.1 mg/dL (1.6-2.6) Total Bilirubin 0.6 mg/dL (0.2-1.0) Aspartate Amino Transferase (AST) 11 U/L (13-40) Alanine Aminotransferase (ALT) 26 U/L (7-40) Alkaline Phosphatase 109 U/L (46-116) Total Protein 6.6 g/dL (5.7-8.2) Albumin 4.7 g/dL (3.2-4.8) Prothrombin Time 10.6 sec (9.3-11.8) Prothrombin Time INR 1.00 (0.9-1.15) Activated Partial Thromboplast Time 24.8 SEC (24.5-34.5) Hemoglobin A1c 5.6 % A1C (<5.7) Direct Bilirubin 0.3 mg/dL (<0.3) Carcinoembryonic Antigen 2.13 ng/mL (<=5.0) Vitamin B12 Level 713 pg/mL (211-911) Folic Acid 7.40 ng/mL (>5.38) Thyroid Stimulating Hormone (TSH) 0.95 uIU/mL (0.55-4.78) Stool Occult Blood Negative (Negative) Stool Occult Blood Sample #3 (Negative) Stool for White Cells Rare Urine Color Yellow (Yellow) Urine Clarity Clear (Clear) Urine pH 8.5 (5.0-9.0) Urine Specific [place] 1.024 (1.001-1.035) Urine Protein 1+ (Negative) Urine Ketones Negative (Negative) Urine Blood Negative /uL (Negative) Urine Nitrite Negative (Negative) Urine Bilirubin Negative (Negative) Urine Urobilinogen 3 mg/dL (Negative) Urine Leukocyte Esterase Negative /uL (Negative) Urine RBC 3 /hpf (0 - 3) Urine Microscopic WBC < 1 /HPF (0-3) Urine Squamous Epithelial Cells Few /hpf (<5) Urine Bacteria None seen /hpf (None Seen) Urine Glucose Normal mg/dL (Normal) Urine Opiates Screen Neg (NEGATIVE) Urine Fentanyl Screen Neg (NEGATIVE) Urine Barbiturates Screen Neg (NEGATIVE) Urine Phencyclidine Screen Neg (NEGATIVE) Urine Amphetamines Screen Neg (NEGATIVE) Urine Benzodiazepines Screen Neg (NEGATIVE) Urine Cocaine Screen Neg (NEGATIVE) Urine Cannabinoids Screen Pos (NEGATIVE) SARS-CoV-2 Antigen (Rapid) Negative (NEGATIVE) Test 09/29/24 01:07 09/28/24 12:05 Lactic Acid Level 1.0 mmol/L (0.4-2.0) Lipase 67 U/L (12-53) Other Laboratory Tests 09/30/24 06:22 Brief Hx & Hospital Course: A 59-year-old male with a past medical history of hypertension, hyperlipidemia, and prior alcohol use disorder presented with severe epigastric pain, melena, and significant weight loss over six months. 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 He was admitted for further evaluation and management. Upper endoscopy identified a sliding-type hiatal hernia and minimal gastritis without evidence of Dewey's or significant esophagitis. He received supportive care, including IV fluids, proton pump inhibitors, and symptom management, and tolerated the intervention well. The patient was discharged in stable condition with instructions to continue Carafate and omeprazole for gastritis management. Outpatient follow-up was arranged to discuss biopsy results and address further management. He was advised to return to the ED if symptoms such as hematemesis, worsening pain, or melena recur. General Appearance: Alert, Oriented X3, Cooperative, No acute distress HEENT: Atraumatic, PERRLA, EOMI Respiratory: Clear to auscultation, Normal air movement Cardiovascular: Regular rate, Normal S1, Normal S2, No murmurs Abdominal: Normal bowel sounds, Soft, No hepatospenomegaly, No masses, Other (Moderate tenderness in epigastric region, mcdaniel positive) Extremities: No clubbing, No cyanosis, No edema, Normal pulses, No tenderness/swelling Skin: No rashes, No breakdown, No significant lesion Neuro: Normal gait, Normal speech, Strength at 5/5 X4 ext, Normal tone, Sensation intact, Cranial nerves 3-12 NL Psych/Mental Status: Mental status NL, Mood NL Case discussed with Dr Ponce Time spent on care 23 min Consults/Reason for consult GI due to epigastric pain Operations or Procedures DATE OF OPERATION: 09/30/24 PROCEDURE: Upper Endoscopy with biopsy PREOPERATIVE INDICATION: The patient is a 59 -year-old male undergoing endoscopy for nausea vomiting epigastric pain and weight loss POSTOPERATIVE DIAGNOSES: 1. 0.5 cm sliding-type hiatal hernia with slightly irregular squamocolumnar junction no significant erosive esophagitis and no evidence of Dewey's 2. Minimal gastritis otherwise normal examination up to the 2nd and 3rd part of the duodenum PROCEDURE PERFORMED BY: Rachel Bruce GI NURSE: Telma SCOPE: Olympus videoendoscope. ASA CLASS: 3. PREOPERATIVE MEDICATIONS: JANENE louise, Dr. Woods PROCEDURE IN DETAIL: After obtaining an informed consent, the patient was placed on left lateral decubitus position. The patient was then sedated with the above medications. A bite block was placed between his teeth. The endoscope was then passed through the oropharynx, into the esophagus, and through the stomach and pylorus up to the second and third part of the duodenum. The endoscope was then withdrawn. The 2nd and 3rd part of the duodenum and the duodenal bulb were normal. Duodenal biopsies were obtained. The pre-pyloric area antrum and body showed minimal gastritis. There were no ulcers or erosions. Gastric biopsies were obtained. On retroflexion the fundus cardia and angularis were normal. Endoscope was then withdrawn into the distal esophagus where he had a 0.5 cm extension of columnar epithelium into the distal esophagus. There was no evidence of esophagitis and no evidence of Dewey's. GE junction biopsies were obtained. The remaining distal and proximal esophagus and oropharynx were unremarkable The patient tolerated the procedure well without difficulty. COMPLICATIONS : None SPECIMENS: Duodenal biopsies Gastric biopsies GE junction biopsies DISPOSITION: Stable D/C to home PLAN: 1. Await for biopsy result 2. Will place pt on Protonix 40 mg p.o. twice a day 3. Carafate 1 g p.o. twice a day 4. Resume GI soft diet advance as tolerated 5. Outpatient follow up with me in 4-6 weeks to review results and discuss further management CT CT AB PEL WITH IV CON ONLY INDICATION: r/o pancreatic mass, gastric mass EXAM DATE: 09/29/2024 08:21 AM COMPARISON: None RADIATION DOSE: CTDIvol: 10.71 mGy, DLP: 582.89 mGy*cm PROCEDURE: Helical CT images were obtained of the abdomen and pelvis with IV contrast Sagittal and coronal reconstructions are provided. ORAL CONTRAST: None. ADDITIONAL IMAGES / REFORMATS: None All CT scans at this medical facility are performed using dose modulation techniques as appropriate to a performed exam including the following: Automated exposure control was utilized; adjustment of the MA and/or KV according to patient size; and use of iterative reconstruction technique. FINDINGS: LUNG BASE: Normal. LIVER: Normal. GALLBLADDER AND BILIARY TREE: No calcified gallstones. Normal caliber wall. No intra- or extrahepatic biliary ductal dilation. PANCREAS: Normal. SPLEEN: Normal. BOWEL: Normal. ADRENALS: Normal. KIDNEYS AND URETER: Normal. BLADDER: Normal. REPRODUCTIVE ORGANS: Normal. LYMPH NODES:No lymphadenopathy. PERITONEUM: No ascites or free air. No other fluid collection. VESSELS: Scattered atherosclerotic calcifications are noted. RETROPERITONEUM: Normal. ABDOMINAL WALL: Normal. BONES: Scattered osseous degenerative changes are noted. IMPRESSION: No acute intraabdominal abnormality. No abdominal masses are seen. Condition at Discharge: Stable Final Diagnosis/Problems List #Abdominal pain likely due to gastritis #0.5 cm sliding-type hiatal hernia with slightly irregular squamocolumnar junction no significant erosive esophagitis and no evidence of Dewey's #Minimal gastritis otherwise normal examination up to the 2nd and 3rd part of the duodenum #Ruled out upper GI bleed #History of Dewey's esophagus #History of hypertension, controlled #Hyperlipidemia #Ex-heavy smoker #Previous alcohol abuse #Degenerative disc disease of lumbar spine Discharge Disposition: Home Discharge Instruct/Medications Diet: Cardiac 2g Na,low cholest Activity: No Restrictions, As Tolerated Follow Up/Referral: fu with pcp and dr vashti SANCHEZ for biospy results Medications: see prescription Discharge Statement: "Patient was advised to return to the ER or call 911 if any headaches, dizziness, shortness of breath, chest pain, abdominal pain, bleeding, fevers, or worsening of medical condition. Patient was counseled about treatment plan, medications, possible side effects, patientverbalized understanding. All questions were answered to the best of my ability. This discharge took greater then 30 minutes in planning, reviewing documentation, counseling the patient, and discussing with other team members." ASSESSMENT ASSESSMENT Assessment gastritis Date of Service: Sep 30, 2024 Billing Provider: VINAY PONCE MD Common Visit Codes: 17576-ASY/OBS DISCH DAY >30min DEMETRIUS BLEDSOE RESIDENT Sep 30, 2024 18:47 VINAY PONCE MD Oct 05, 2024 14:29
--- NOTE | 2024-10-02 07:12 | ECG ---
[facility] Test Date: 2024-09-28 Test Time: 11:57:04 Pat Name: MANUEL BERGER Department: ER Room: 0246 A Gender: M Combiner: CHRISTOPHER : 1965 Requested By: XAVI JERONIMO Order Number: [id number] Reading MD: Satya Martin Measurements Intervals [place] Rate: 94 P: 57 OK: 135 QRS: 83 QRSD: 83 T: 38 QT: 350 QTc: 438 Interpretive Statements Sinus rhythm Borderline right axis deviation Baseline wander in lead(s) III Electronically Signed On 10-02-2024 9:45:40 PST by Satya Martin Please click the below link to view image of tracing.
== END 2024-09-30 20:00 | disposition home or self-care (01) | DRG 241 ==
LOC: ER 11:38 → OVERFLOW 20:55 → EAST 23:13
PROVIDERS: ADMIT Student in an Organized Health Care Education/Training Program; ATTEND Student in an Organized Health Care Education/Training Program
PROC: 0DB68ZX Excision of Stomach, Via Natural or Artificial Opening Endoscopic, Diagnostic (ICD-10-PCS; 2024-09-30)
PROC: 0DB48ZX Excision of Esophagogastric Junction, Via Natural or Artificial Opening Endoscopic, Diagnostic (ICD-10-PCS; 2024-09-30)
PROC: 0DB98ZX Excision of Duodenum, Via Natural or Artificial Opening Endoscopic, Diagnostic (ICD-10-PCS; principal; 2024-09-30 13:41)
DX: K29.70 Gastritis, unspecified, without bleeding (principal); E78.5 Hyperlipidemia, unspecified; I10 Essential (primary) hypertension; K21.9 Gastro-esophageal reflux disease without esophagitis; M51.369 Other intervertebral disc degeneration, lumbar region without mention of lumbar back pain or lower extremity pain; K52.9 Noninfective gastroenteritis and colitis, unspecified; Z20.822 Contact with and (suspected) exposure to COVID-19; K44.9 Diaphragmatic hernia without obstruction or gangrene; Z87.891 Personal history of nicotine dependence
CPT/HCPCS: 36415; 71045; 74176; 74177; 80048; 80053; 80076; 80307; 81001; 82270; 82378; 82607; 82746; 83036; 83605; 83690; 83735; 84443; 85025; 85048; 85610; 85730; 86850; 86900; 86901; 87045; 87426; 87427; 87493; 93005; 96361; 96374; 96375; G0378; J1100; J2250; J2405; J2470

== ENCOUNTER 2025-07-09 13:00 | Emergency (ER) | payer OTHER ==
[~2025-07-09] VITALS: Ht 165.1 cm; Wt 78.2 kg
[~2025-07-09 13:00] MED LIST: ACET-6; ALBU108A5; AMIT-238; AMLO1TAB22; ATOR40TA52; ENAL1TAB48; FLUT50SP; LIDO1.8P; PANT40TA2 PO; PANT40TA57; SUCR1TAB; SUCR1TAB PO
--- NOTE | 2025-07-09 14:06 | DVH ---
CLINICAL INDICATION: INJURY TECHNIQUE: 3 radiographic views of the right ankle were obtained. Comparison: None FINDINGS/IMPRESSION: There is bony irregularity of the distal medial malleolus which may represent sequela of injury of unknown chronicity. Recommend correlation with point tenderness to exclude an acute fracture. No significant associated soft tissue edema. Otherwise, no evidence of acute traumatic fractures or dislocations. Small posterior and plantar calcaneal bony spurs.
--- NOTE | 2025-07-09 14:24 | ED.PDOC ---
Musculoskeletal HPI Comments A 60 YEAR OLD MALE PRESENTS TO THE ED WITH COMPLAINT OF RIGHT ANKLE PAIN. PATIENT STATES HE WAS WALKING IN THE STAIRS EARLIER TODAY AND HE ACCIDENTALLY ROLLED HIS RIGHT ANKLE. PATIENT REPORTS HE IS NOW EXPERIENCING RIGHT ANKLE PAIN THAT IS WORSE WITH MOVEMENT. PATIENT IS ABLE TO WALK AND BEAR WEIGHT WITH A STABLE GAIT. PATIENT DENIES FEVER, CHILLS, SHORTNESS OF BREATH, CHEST PAIN, ABDOMINAL PAIN, NAUSEA, VOMITING, HEADACHE, OR OTHER COMPLAINTS. NO OTHER SYMPTOMS OR MODIFYING FACTORS AT THIS TIME. PATIENT IS ALERT, ORIENTED X 4, AND HAS STEADY GAIT. Chief Complaint: Lower Extremity Time Seen by MD: 13:18 Primary Care Provider: HUONG Reviewed Notes: Nurses Notes, Medications, Allergies Allergies: Coded Allergies: NO KNOWN ALLERGIES (Unverified , 09/28/24) Home Meds Active Scripts Ibuprofen (Ibuprofen) 800 Mg Tab, 1 TAB PO TID, #30 TAB Prov:ODIN CERNA 07/09/25 Sucralfate (Sucralfate) 1 Gm Tab, 1 GM PO QIDACHS for 10 Days, #10 TAB Prov:DEMETRIUS BLEDSOE RESIDENT 09/30/24 Pantoprazole Sodium Sesquihydr (Protonix) 40 Mg Tab, 40 MG PO BID for 7 Days, #14 TAB Prov:DEMETRIUS BLEDSOE RESIDENT 09/30/24 Reported Medications Acetaminophen (Acetaminophen Extra Stren) 500 Mg Tab, 1 09/28/24 Fluticasone Propionate (Nasal) (Fluticasone Propionate) 50 Mcg/Act Spr 09/28/24 Amitriptyline HCl (Amitriptyline Hydrochlori) 25 Mg Tab, 1 09/28/24 Pantoprazole Sodium Sesquihydr (Pantoprazole Sodium Dr) 40 Mg Tab, 1 DAILY 09/28/24 Enalapril Maleate (Enalapril Maleate) 20 Mg Tab, 1 09/28/24 Atorvastatin Calcium (ATORVASTATIN CALCIUM) 40 Mg Tab, 1 DAILY 09/28/24 Lidocaine (Ztlido) 1.8 % Pad 09/28/24 Amlodipine Besylate (Amlodipine Besylate) 5 Mg Tab, 1 DAILY 09/28/24 Sucralfate (Sucralfate) 1 Gm Tab, 1 DAILY 09/28/24 Albuterol Sulfate (Albuterol Sulfate Hfa) 108 Mcg/Act Aer 09/28/24 Information Source: Patient Mode of Arrival: Ambulatory Location: Right Extremity Location: Ankle Timing: Hours Prehospital treatment: None Severity: Moderate Able to Move Extremity: Yes Bear Weight: Fully Pain: Moderate Mechanism: Twisting Circumstances: Accident Onset of Symptoms: After Trauma Symptoms: Pain DVT Risk Factors: NONE Last Tetanus: Unknown Associated signs and symptoms: Ankle pain Past Medical History PAST MEDICAL HISTORY: High Lipids, HTN Surgical History: Denies all surgeries Family History Family History: Reviewed,noncontributory to illness Social History Smoker: Non-Smoker, Quit Greater Than 1 Year Alcohol: Denies ETOH Use Drugs: Marijuana Lives In: Home Constitutional: denies: chills, diaphoresis, fatigue, fever, malaise, sweats, weakness, others EENTM: denies: blurred vision, double vision, ear bleeding, ear discharge, ear drainage, ear pain, ear ringing, eye pain, eye redness, hearing loss, mouth pain, mouth swelling, nasal discharge, nose bleeding, nose congestion, nose pain, photophobia, tearing, throat pain, throat swelling, voice changes, others Respiratory: denies: cough, hemoptysis, orthopnea, SOB at rest, shortness of breath, SOB with excertion, stridor, wheezing, others Cardiovascular: denies: chest pain, dizzy spells, diaphoresis, Dyspnea on exertion, edema, irregular heart beat, left arm pain, lightheadedness, palpitations, PND, syncope, others Gastrointestinal: denies: abdomen distended, abdominal pain, blood streaked bowels, constipated, diarrhea, dysphagia, difficulty swallowing, hematemesis, melena, nausea, poor appetite, poor fluid intake, rectal bleeding, rectal pain, vomiting, others Genitourinary: denies: burning, dysuria, flank pain, frequency, hematuria, incontinence, penile discharge, penile sore, pain, testicle pain, testicle swelling, urgency, others Neurological: denies: dizziness, fainting, headache, left sided numbness, left sided weakness, numbness, paresthesia, pre-existing deficit, right sided numbness, right sided weakness, seizure, speech problems, tingling, tremors, weakness, others Musculoskeletal: reports: joint pain, joint swelling, others (RIGHT ANKLE PAIN); denies: back pain, gout, muscle pain, muscle stiffness, neck pain Integumetry: denies: bruises, change in color, change in hair/nails, dryness, laceration, lesions, lumps, rash, wounds, others Allergic/Immunocompromised: denies: Difficulty Healing, Frequent Infections, Hives, Itching, others Hematologic/Lymphatic: denies: anemia, blood clots, easy bleeding, easy bruising, swollen glands, others Endocrine: denies: excessive hunger, excessive sweating, excessive thirst, excessive urination, flushing, intolerance to cold, intolerance to heat, unexplained weight gain, unexplained weight loss, others Psychiatric: denies: anxiety, bipolar disorder, depression, hopeless, panic disorder, schizophrenia, sleepless, suicidal, others All Other Systems: Reviewed and Negative Physical Exam General Appearance: No Apparent Distress, Normal HEENT: Normal ENT Inspection, PERRL/EOMI, Pharynx Normal, TMs Normal Neck: Full Range of Motion, Non-Tender, Normal, Normal Inspection Respiratory: Chest Non-Tender, Lungs Clear, No Accessory Muscle Use, No Respiratory Distress, Normal Breath Sounds Cardiovascular: No Edema, No JVD, No Murmur, No Gallop, Normal Peripheral Pulses, Regular Rate/Rhythm Breast Exam: Deferred Gastrointestinal: No Organomegaly, Non Tender, No Pulsatile Mass, Normal Bowel Sounds, Soft Genitalia: Deferred Pelvic: Deferred Rectal: Deferred Extremities: No calf tenderness, Normal capillary refill, Normal range of motion, No pedal edema, Tender (AND MILD SWELLING ON RIGHT LATERAL ANKLE, NO BONY TENDERNESS AND DEFORMITY. ) Musculoskeletal : Apperance: Normal Neurologic: Alert, fretted instruments inspector II-XII nml as Tested, No Motor Deficits, Normal Affect, Normal Mood, No Sensory Deficits Cerebellar Function: Normal Reflexes: Normal Skin: Dry, Normal Color, Warm Peripheral Pulses: 2+ carotid (R), 2+ carotid (L), 2+ dorsalis pedis (R), 2+ dorsalis pedis (L) Lymphatic: No Adenopathy Was a procedure done? Was a procedure done?: No Differential Diagnosis EXT Differential Diagnosis: Fracture, Sprain, Dislocation, DJD, Contusion, Strain, Arthritis, Bursitis X-Ray, Labs, Meds, VS Vital Signs Date Time Temp Pulse Resp B/P (MAP) Pulse Ox O2 Delivery O2 Flow Rate FiO2 07/09/25 14:26 Room Air* 0 21 07/09/25 14:25 98.7 70 16 131/71 (91) 95 98.7 07/09/25 13:03 98.4 78 18 149/78 98 98.4 CLINICAL INDICATION: INJURY TECHNIQUE: 3 radiographic views of the right ankle were obtained. Comparison: None FINDINGS/IMPRESSION: There is bony irregularity of the distal medial malleolus which may represent sequela of injury of unknown chronicity. Recommend correlation with point tenderness to exclude an acute fracture. No significant associated soft tissue edema. Otherwise, no evidence of acute traumatic fractures or dislocations. Small posterior and plantar calcaneal bony spurs. ATED BY: MARBELLA DIGGS DO DICTATED DATE/TIME: 07/09/251403 SIGNED BY: MARBELLA DIGGS DO SIGNED DATE/TIME: 07/09/251403 CC: X-Ray, Labs, Meds, VS Comment EXTERNAL MEDICAL RECORDS REVIEWED: [NONE] INDEPENDENT HISTORIANS: [NONE] SOCIAL DETERMINANTS OF HEALTH: [NONE] LABS ORDERED: NONE REVIEWED AND INTERPRETED RESULTS: NONE IMAGING ORDERED: XR ANKLE RT TREATMENTS ORDERED: PROCEDURES PERFORMED: NONE CRITICAL CARE TIME: NONE I HAVE DISCUSSED THE PATIENT WITH THE ATTENDING PHYSICIAN DR. RENDON AND HE AGREES WITH THE PATIENT'S PLAN OF CARE AND DISPOSITION. BASED ON HISTORY OF PRESENT ILLNESS, AND PHYSICAL EXAM, PATIENT WILL BE DISCHARGED HOME. DISCUSSED PLAN FOR DISCHARGE HOME WITH RX []. MEDICATION WARNINGS GIVEN. SHARED DECISION MAKING: DISCUSSED WITH PATIENT THAT THEIR WORKUP WAS NORMAL. PATIENT INSTRUCTED TO FOLLOW UP WITH PRIMARY CARE PROVIDER IN 1-2 DAYS FOR RE- EVALUATION OF SYMPTOMS. PATIENT VERBALIZES UNDERSTANDING TO RETURN TO ED FOR NEW OR WORSENING SYMPTOMS OR IF FOLLOW UP WITH PCP CANNOT BE OBTAINED. PATIENT FEELS COMFORTABLE GOING HOME AT THIS TIME. ALL QUESTIONS ADDRESSED AT TIME OF DISCHARGE. Images Reviewed?: Images reviewed and evaluated by me Time of 1ST Reevaluation: 14:32 Reevaluation 1ST: Improved Patient Education/Counseling: Diagnosis, Treatment, Need For Follow Up Family Education/Counseling: Diagnosis, Treatment, Need For Follow Up Medical Screening: No EMC Exist At This Time Departure 1 Departure Time of Disposition: 14:32 Impression: Primary Impression: Sprain of right ankle Qualified Codes: S93.401A - Sprain of unspecified ligament of right ankle, initial encounter Disposition: HOME / SELF CARE / HOMELESS Condition: Stable Additional Instructions: FOLLOW-UP WITH PCP IN 1 TO 2 DAYS. TAKE MEDICATIONS PRESCRIBED. RETURN TO ED FOR ANY NEW OR WORSENING SYMPTOMS. e-Prescriptions Ibuprofen (Ibuprofen) 800 Mg Tab 1 TAB PO TID, #30 TAB Prov: ODIN CERNA 07/09/25 Discharged With: Self Critical Care Note Critical Care Time?: No Stability Stability form required: No I personally scribed for ODIN CERNA ([email or web address]) on 07/09/25 at 14:24. Electronically submitted by Rogelio Moe ([email or web address]). ODIN CERNA Jul 09, 2025 14:24
[2025-07-09 14:25] VITALS: BP 131/71; PULSE 70; RESP 16; TEMP 98.7; O2SAT 95
[2025-07-09] MEDS ORDERED: IBUP-1456 PO (14:30)
== END 2025-07-09 14:32 | disposition home or self-care (01) ==
LOC: ER 13:00
DX: S93.401A Sprain of unspecified ligament of right ankle, initial encounter (principal); F12.90 Cannabis use, unspecified, uncomplicated; E78.5 Hyperlipidemia, unspecified; I10 Essential (primary) hypertension; Z79.899 Other long term (current) drug therapy; Z79.1 Long term (current) use of non-steroidal anti-inflammatories (NSAID); X50.1XXA Overexertion from prolonged static or awkward postures, initial encounter; Y93.01 Activity, walking, marching and hiking; Y92.89 Other specified places as the place of occurrence of the external cause; Y99.8 Other external cause status
CPT/HCPCS: 73610